=== PATIENT | male | born 1960 | race Caucasian/White ===

== ENCOUNTER 2020-04-26 08:24 | Emergency (ER) | payer BC ==
[2020-04-26 08:37] VITALS: BP 111/77; PULSE 84
--- NOTE | 2020-04-26 08:56 | EDM.PDOC ---
ED HPI GENERAL MEDICAL PROBLEM - General Chief Complaint: Genitourinary Problem Stated Complaint: BLOOD IN URINE Time Seen by Provider: 04/26/20 08:40 Source of Information: Reports: Patient, Family History Limitations: Reports: No Limitations - History of Present Illness INITIAL COMMENTS - FREE TEXT/NARRATIVE: 59-year-old male who had a radical prostatectomy 2 weeks ago, had increased urination last night but also increased hematuria. No fevers or chills, no increase in dysuria or urgency. No change in pain level. Denies nausea or vomiting. Last night he felt just temporary obstruction something "passed" then he emptied his bladder better than he has since his surgery. He said it "felt good" but he noticed it was increased blood. He is on Lovenox. This morning he is still having dark red urine but no clots. Onset: Unknown/Unsure Associated Symptoms: Denies: Chest Pain, Fever/Chills, Loss of Appetite, Malaise, Nausea/Vomiting, Shortness of Breath, Weakness - Related Data Allergies Allergy/AdvReac Type Severity Reaction Status Date / Time No Known Allergies Allergy Verified 04/26/20 08:31 Home Meds: Home Meds Enoxaparin [Lovenox] 40 mg SUBCUT DAILY 04/26/20 [History] Past Medical History HEENT History: Reports: Other (See Below) Other HEENT History: L eye states blurrery Musculoskeletal History: Reports: Arthritis, Other (See Below) Other Musculoskeletal History: shoulder dislocation Oncologic (Cancer) History: Reports: Prostate - Infectious Disease History Infectious Disease History: Reports: Chicken Pox - Past Surgical History Male Surgical History: Reports: Prostatectomy Social & Family History - Tobacco Use Tobacco Use Status *Q: Current Every Day Tobacco User Years of Tobacco use: 30 Packs/Tins Daily: 0.2 - Caffeine Use Caffeine Use: Reports: Soda - Recreational Drug Use Recreational Drug Use: No ED ROS GENERAL - Review of Systems Review Of Systems: See Below Constitutional: Denies: Fever, Chills, Malaise HEENT: Reports: No Symptoms Respiratory: Denies: Shortness of Breath Cardiovascular: Denies: Chest Pain GI/Abdominal: Denies: Abdominal Pain, Nausea, Vomiting Skin: Reports: No Symptoms Neurological: Reports: No Symptoms Psychiatric: Reports: No Symptoms ED EXAM, RENAL/ - Physical Exam Exam: See Below Exam Limited By: No Limitations General Appearance: Alert, No Apparent Distress Respiratory/Chest: No Respiratory Distress Cardiovascular: Regular Rate, Rhythm. No: Tachycardia GI/Abdominal: Soft, Non-Tender (Male) Exam: No: Suprapubic Fullness Extremities: No: Pedal Edema Neurological: Alert, Oriented Course - Vital Signs Last Recorded V/S: Last Vital Signs Temp 97.6 F 04/26/20 08:36 Pulse 84 04/26/20 08:36 Resp 14 04/26/20 08:36 BP 111/77 04/26/20 08:36 Pulse Ox 98 04/26/20 08:36 - Orders/Labs/Meds Labs: Laboratory Tests 04/26/20 04/26/20 Range/Units 08:52 08:52 WBC 7.8 (4.5-11.0) K/uL RBC 4.59 (4.30-5.90) M/uL Hgb 13.5 (12.0-15.0) g/dL Hct 40.2 (40.0-54.0) % MCV 88 (80-98) fL MCH 29 (27-31) pg MCHC 34 (32-36) % Plt Count 386 (150-400) K/uL Neut % (Auto) 62 (36-66) % Lymph % (Auto) 24 (24-44) % [place] % (Auto) 8 H (2-6) % Eos % (Auto) 5 H (2-4) % Baso % (Auto) 1 (0-1) % Urine Color Red A (YELLOW) Urine Appearance Turbid A (CLEAR) Urine pH 6.0 (5.0-8.0) Ur Specific [place] >= 1.030 (1.008-1.030) Urine Protein 100 H (NEGATIVE) mg/dL Urine Glucose (UA) Negative (NEGATIVE) mg/dL Urine Ketones Negative (NEGATIVE) mg/dL Urine Occult Blood Moderate H (NEGATIVE) Urine Nitrite Negative (NEGATIVE) Urine Bilirubin Negative (NEGATIVE) Urine Urobilinogen 0.2 (0.2-1.0) EU/dL Ur Leukocyte Esterase Negative (NEGATIVE) Urine RBC Packed H (0-5) Urine WBC 0-5 (0-5) Ur Epithelial Cells Not seen Amorphous Sediment Not seen Urine Bacteria Not seen Urine Mucus Few - Re-Assessments/Exams Free Text/Narrative Re-Assessment/Exam: 04/26/20 08:56 UA was obtained as well as a CBC for baseline hemoglobin. When results are obtained, we will inform his urologist of his condition for advice. 04/26/20 09:22 Hemoglobin is normal, urine is packed RBCs but no other abnormality, no bacteria or WBCs. Discussed with urology, they recommended stopping the Lovenox until bleeding clears and drink plenty of water. He can return if he develops retention or obstruction. Departure - Departure Time of Disposition: 09:33 Disposition: Home, Self-Care 01 Clinical Impression: Hematuria Qualifiers: Hematuria type: gross Qualified Code(s): R31.0 - Gross hematuria - Discharge Information Instructions: Hematuria, Adult Referrals: El Min MD [Primary Care Provider] - Forms: ED Department Discharge Care Plan Goals: Hold your Lovenox for at least 3 days and until the bleeding clears. Return if you develop obstruction or retention, pain, or fever. Consider rechecking in 2 to 3 days if bleeding is persistent to recheck your hemoglobin. Sepsis Event Note (ED) - Evaluation Sepsis Screening Result: No Definite Risk - Focused Exam Vital Signs: Vital Signs Temp Pulse Resp BP Pulse Ox 04/26/20 08:36 97.6 F 84 14 111/77 98
== END 2020-04-26 09:33 | disposition home or self-care (01) ==
LOC: JP.ED 08:24
DX: R31.0 Gross hematuria (principal); Z72.0 Tobacco use; Z90.79 Acquired absence of other genital organ(s)
CPT/HCPCS: 36415; 81001; 85025; 99283

== ENCOUNTER 2021-07-13 12:50 | Emergency (ER) | payer BC ==
[2021-07-13 13:15] VITALS: BP 107/70; PULSE 58
== END 2021-07-13 13:39 | disposition other institution (70) ==
LOC: JP.ED 12:50
DX: N48.33 Priapism, drug-induced (principal); T50.905A Adverse effect of unspecified drugs, medicaments and biological substances, initial encounter
CPT/HCPCS: 99283